=== PATIENT | female | born 1995 | race Caucasian/White ===

== ENCOUNTER 2016-07-11 16:54 | Outpatient (CLI) | payer OTHER ==
--- NOTE | 2016-07-11 20:33 | DIAGNOSTIC IMAGING REPORT ---
PROCEDURE: US NONVASCULAR EXTREMITY-LEFT INDICATION: LT LEG PAIN,POSS TENDON RUPTURE TECHNIQUE: Cavazos scale and color Doppler sonographic images of the left lower extremity were obtained COMPARISON: None. FINDINGS: Sonographically normal tissue. No suspicious cyst, fluid collection, solid mass, hypervascularity, or abnormal shadowing. IMPRESSION: 1. No obvious intramuscular fluid collections to suggest hematoma. Ruptured tendon was not visible on the study. MRI of the lower extremity is recommended for further evaluation.
== END 2016-07-11 23:00 ==
LOC: US SRH 16:54
DX: M79.605 Pain in left leg (principal)

== ENCOUNTER 2016-07-15 09:36 | Outpatient (CLI) | payer OTHER ==
--- NOTE | 2016-07-15 18:37 | DIAGNOSTIC IMAGING REPORT ---
PROCEDURE: MR LOW EXT NONJOINT WO CON-LT INDICATION: LLE pain, evaluate for plantaris/gastrocnemius rupture TECHNIQUE: Coronal and sagittal T1 and STIR sequences through both lower legs. Axial T1 and STIR sequences through the left lower leg. COMPARISON: None. FINDINGS: Muscles of the posterior left lower leg are normal in bulk and signal. There is no sundeep fascial fluid or hematoma. The distal aspect of the plantaris tendon is not seen as a separate structure from the soleus or gastrocnemius fascia and is not present distally medial to the Achilles in the expected location. 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 The Achilles tendon appears normal. Bones demonstrate a normal marrow signal. No subcutaneous mass, edema, or focal fluid collection. IMPRESSION: 1. Normal MRI of the left lower leg. Specifically, no evidence of plantaris or gastrocnemius tendon rupture.
== END 2016-07-15 23:00 ==
LOC: MRI SRH 09:36
DX: M79.605 Pain in left leg (principal)